=== PATIENT | male | born 1970 | race Caucasian/White ===

== ENCOUNTER 2022-06-12 03:10 | Emergency (ER) | payer OTHER ==
[2022-06-12] MEDS ORDERED: DIAZEPAM 5 MG TABLET ONE ×2 (04:17→06:06)
[2022-06-12] MEDS ORDERED: HYDROCODONE/APAP 5/325 MG TAB ONE (04:17)
[2022-06-12 05:36] LABS: Urine Blood Negative (Negative); Urine Glucose Negative (Negative); Urine Protein Negative (Negative)
[2022-06-12 05:46] LABS: Specific Gravity 1.016 (1.005-1.030); Urine Bilirubin NEGATIVE (Negative); Urine Blood Negative (Negative); Urine Clarity Clear (Clear); Urine Color Colorless (Yellow); Urine Glucose NEGATIVE (Negative); Urine Protein NEGATIVE (Negative); Urine Urobilinogen Normal (Normal)
--- NOTE | 2022-06-12 06:13 | RAD REPORT ---
EXAM DESCRIPTION: RAD - Lumbar Spine 3 Views - 06/12/2022 5:55 am CLINICAL HISTORY: Back pain FINDINGS: No fracture or dislocation is seen. Mild spondylosis involves the lumbar spine
[2022-06-12] MEDS ORDERED: MORPHINE 4 MG/ML SYR ONE (06:52)
[2022-06-12] MEDS ORDERED: KETOROLAC 30 MG/ML INJ ONE ×2 (06:52→08:53)
[2022-06-12] MEDS ORDERED: dexAMETHasone 10 MG/ML VIAL ONE (08:52)
[2022-06-12] MEDS ORDERED: HYDROMORPHONE HCL 1 MG/ML INJ ONE ×2 (08:53→09:55)
[2022-06-12] MEDS ORDERED: NA CHLORIDE 0.9% 1,000 ML ONE (08:53)
--- NOTE | 2022-06-12 09:28 | RAD REPORT ---
EXAM DESCRIPTION: CT - Abdomen Pelvis W Contrast - 06/12/2022 9:16 am CLINICAL HISTORY: Abdominal pain COMPARISON: none. TECHNIQUE: Computed axial tomography of the abdomen pelvis was obtained. 100 cc Isovue-300 was admin istered intravenously. Oral contrast was given All CT scans are performed using dose optimization technique as appropriate and may include automated exposure control or mA/KV adjustment according to patient size. FINDINGS: Fatty liver. Hepatic granuloma. The spleen,, pancreas and adrenals unremarkable. Small right renal cyst. 4 millimeter calculus left kidney. No hydronephrosis. No evidence of diverticulitis. Normal appendix. Wall of the distal esophagus appears thickened. IMPRESSION: Wall of the distal esophagus appears thickened. This may be secondary to incomplete dist ention or pathology such as inflammation. Fatty liver 4 millimeter nonobstructing left renal calculus
--- NOTE | 2022-06-12 09:40 | EDPHYS ---
Physician Documentation [facility] Name: Adi Meredith Age: 51 yrs Sex: Male : 1970 Arrival Date: 06/12/2022 Time: 03:13 Bed 12 Private MD: GANGA Physician Dago Archibald HPI: 06/12 08:38 This 51 yrs old Male presents to ER via Wheelchair with complaints of Back momo Pain, Flank Pain. 08:38 The patient presents with pain that is acute, and decreased range of motion. The momo symptoms are located in the lumbar area, right mid back and right low back. Onset: The symptoms/episode began/occurred 1 day(s) ago. The pain radiates to the lumbar area, right mid back and right low back. Associated signs and symptoms: The patient has no apparent associated signs or symptoms. Modifying factors: The patient symptoms are alleviated by remaining still, rest. Severity of symptoms: At their worst the symptoms were moderate, severe, in the emergency department the symptoms are unchanged. The patient has not experienced similar symptoms in the past. Historical: - Allergies: 03:44 No Known Allergies; as6 - Home Meds: 03:44 Lisinopril Oral [Active]; Metoprolol Tartrate Oral [Active]; amlodipine oral [Active]; as6 - PMHx: 03:44 Hypertensive disorder; as6 - PSHx: 03:44 None; as6 - Immunization history:: Client reports having NOT received the Covid vaccine. - Social history:: Smoking status: Patient/guardian denies using tobacco. - Family history:: not pertinent. ROS: 08:38 Constitutional: Negative for fever, chills, and weight loss, Eyes: Negative for injury, momo pain, redness, and discharge, ENT: Negative for injury, pain, and discharge, Neck: Negative for injury, pain, and swelling, Cardiovascular: Negative for chest pain, palpitations, and edema, Respiratory: Negative for shortness of breath, cough, wheezing, and pleuritic chest pain, Abdomen/GI: Negative for abdominal pain, nausea, vomiting, diarrhea, and constipation, : Negative for injury, bleeding, discharge, and swelling, MS/Extremity: Negative for injury and deformity, Skin: Negative for injury, rash, and discoloration, Neuro: Negative for headache, weakness, numbness, tingling, and seizure, Psych: Negative for depression, anxiety, suicide ideation, homicidal ideation, and hallucinations, Allergy/Immunology: Negative for hives, rash, and allergies, Endocrine: Negative for neck swelling, polydipsia, polyuria, polyphagia, and marked weight changes, Hematologic/Lymphatic: Negative for swollen nodes, abnormal bleeding, and unusual bruising. 08:38 Back: Positive for injury or acute deformity, decreased range of motion, pain at rest, pain with movement, of the lumbar area, right mid back and right low back. Exam: 08:38 Constitutional: This is a well developed, well nourished patient who is awake, alert, momo and in no acute distress. Head/Face: Normocephalic, atraumatic. Eyes: Pupils equal round and reactive to light, extra-ocular motions intact. Lids and lashes normal. Conjunctiva and sclera are non-icteric and not injected. Cornea within normal limits. Periorbital areas with no swelling, redness, or edema. ENT: Nares patent. No nasal discharge, no septal abnormalities noted. Tympanic membranes are normal and external auditory canals are clear. Oropharynx with no redness, swelling, or masses, exudates, or evidence of obstruction, uvula midline. Mucous membranes moist. Neck: Trachea midline, no thyromegaly or masses palpated, and no cervical lymphadenopathy. Supple, full range of motion without nuchal rigidity, or vertebral point tenderness. No Meningismus. Chest/axilla: Normal chest wall appearance and motion. Nontender with no deformity. No lesions are appreciated. Cardiovascular: Regular rate and rhythm with a normal S1 and S2. No gallops, murmurs, or rubs. Normal PMI, no JVD. No pulse deficits. Respiratory: Lungs have equal breath sounds bilaterally, clear to auscultation and percussion. No rales, rhonchi or wheezes noted. No increased work of breathing, no retractions or nasal flaring. Abdomen/GI: Soft, non-tender, with normal bowel sounds. No distension or tympany. No guarding or rebound. No evidence of tenderness throughout. Male : Normal genitalia with no discharge or lesions. Skin: Warm, dry with normal turgor. Normal color with no rashes, no lesions, and no evidence of cellulitis. MS/ Extremity: Pulses equal, no cyanosis. Neurovascular intact. Full, normal range of motion. Neuro: Awake and alert, GCS 15, oriented to person, place, time, and situation. Cranial nerves II-XII grossly intact. Motor strength 5/5 in all extremities. Sensory grossly intact. Cerebellar exam normal. Normal gait. Psych: Awake, alert, with orientation to person, place and time. Behavior, mood, and affect are within normal limits. 08:38 Back: pain, that is moderate, ROM is painful, with all movement, normal spinal alignment noted, CVA tenderness, is absent, vertebral tenderness, is not appreciated, muscle spasm, is appreciated in the lumbar area, right mid back and right low back. Vital Signs: 03:40 BP 173 / 92; Pulse 88; Resp 16 S; Temp 98.3(TE); Pulse Ox 98% on R/A; Weight 136.08 kg as6 (R); Height 5 ft. 10 in. (177.80 cm) (R); Pain 2/10; 05:05 BP 159 / 86; Pulse 85; Resp 18; Pulse Ox 100% ; jj7 06:00 BP 175 / 90; Pulse 87; Resp 21; Pulse Ox 99% ; Pain 9/10; jj7 06:45 BP 183 / 91; Pulse 85; Resp 21; Pulse Ox 98% ; Pain 8/10; jj7 09:49 BP 114 / 85; Pulse 88; Resp 19; Pulse Ox 100% on R/A; Pain 8/10; bm7 03:40 Body Mass Index 43.05 (136.08 kg, 177.80 cm) as6 MDM: 03:51 Patient medically screened. ms3 07:19 Patient medically screened. momo 08:40 Data reviewed: vital signs, nurses notes, lab test result(s), radiologic studies, CT momo scan. Test interpretation: by ED physician or midlevel provider: plain radiologic studies. Counseling: I had a detailed discussion with the patient and/or guardian regarding: the historical points, exam findings, and any diagnostic results supporting the discharge/admit diagnosis, lab results, radiology results, the need for outpatient follow up, for definitive care, a family practitioner, a neurologist. 06/12 03:57 Order name: Urinalysis; Complete Time: 06:16 ms3 06/12 05:36 Order name: Urine Dipstick-Ancillary; Complete Time: 05:49 EDMS 06/12 05:31 Order name: Lumbar Spine (3 Views) XRAY; Complete Time: 06:16 ms3 06/12 08:46 Order name: Abdomen ; Complete Time: 09:33 EDMS Administered Medications: 04:12 Drug: Valium (diazepam) 5 mg Route: PO; as6 04:12 Drug: HYDROcodone-acetaminophen 5 mg-325 mg 1 tabs Route: PO; as6 05:58 Drug: Valium (diazepam) 5 mg Route: PO; jj7 06:52 Drug: morphine 4 mg Route: IVP; Infused Over: 4 mins; Site: right antecubital; jj7 08:55 Follow up: Response: No adverse reaction; No change in condition ss 06:54 Drug: Ketorolac 10 mg Route: IVP; Site: right antecubital; jj7 09:48 Follow up: Response: No adverse reaction bm7 08:45 Drug: NS 0.9% 1000 ml Route: IV; Rate: 1000 ml; Site: right antecubital; ss 08:48 Drug: Ketorolac 15 mg Route: IVP; Site: right antecubital; ss 09:48 Follow up: Response: Pain is decreased bm7 08:50 Drug: Decadron - Dexamethasone 10 mg Route: IVP; Site: right antecubital; ss 09:48 Follow up: Response: No adverse reaction bm7 08:55 Drug: Dilaudid (HYDROmorphone) 1 mg Route: IVP; Site: right antecubital; ss 10:18 Follow up: Response: Pain is unchanged, physician notified bm7 09:48 Drug: Dilaudid (HYDROmorphone) 1 mg Route: IVP; Site: right antecubital; bm7 09:48 Follow up: Response: Pain is unchanged, physician notified bm7 10:03 Drug: [place] (HYDROcodone-acetaminophen) 10 mg-325 mg 1 tabs Route: PO; bm7 10:18 Follow up: Response: No adverse reaction bm7 Disposition Summary: 06/12/22 09:39 Discharge Ordered Location: Home momo Problem: new momo Symptoms: have improved momo Condition: Stable momo Diagnosis - Strain of muscle and tendon of back wall of thorax momo - Low back pain momo - Unspecified symptoms and signs involving the musculoskeletal system momo Followup: momo - With: Private Physician - When: 2 - 3 days - Reason: Recheck today's complaints, Continuance of care, Re-evaluation by your physician Followup: momo - With: - When: 2 - 3 days - Reason: Recheck today's complaints, Continuance of care, Re-evaluation by your physician Discharge Instructions: - Discharge Summary Sheet momo - Acute Back Pain, Adult momo - Musculoskeletal Pain momo - Back Injury Prevention, [id number] momo - Radicular Pain [facility] Forms: - Medication Reconciliation Form momo - Thank You Letter momo - Antibiotic Education momo - Prescription Opioid Use momo - Work release form bd Prescriptions: - dexamethasone 2 mg Oral tablet - take 2 tablet by ORAL route 2 times per day; 12 tablet; Refills: 0, Product [facility] Selection Permitted - Valium 5 mg Oral Tablet - take 1 tablet by ORAL route every 8 hours As needed; 20 tablet; Refills: 0, [facility] Product Selection Permitted - Diclofenac Sodium 75 mg Oral Tablet Sustained Release - take 1 tablet by ORAL route 2 times per day; 30 tablet; Refills: 0, Product [facility] Selection Permitted - Tylenol-Codeine #3 300 mg-30 mg Oral - take 2 tablet by ORAL route every 6 hours; 26 tablet; Refills: 0, Product [facility] Selection Permitted Signatures: Dispatcher [employer] EDMS Dago Archibald MD MD cha Smirch, Shelby RN RN ss Wesley Mae DO DO ms3 Taylor Jimenez RN RN bm7 Sergio Aceves RN RN as6 Oni Jin RN RN jj7 Corrections: (The following items were deleted from the chart) 08:46 06:28 Abdomen Pelvis Wo Con+CT.RAD.BRZ ordered. EDMS EDMS 08:47 08:38 Spine Lumbar Wo Con+CT.RAD.BRZ ordered. EDMS EDMS
--- NOTE | 2022-06-12 09:40 | ER ---
Nurse's Notes [facility] Name: Adi Meredith Age: 51 yrs Sex: Male : 1970 Arrival Date: 06/12/2022 Time: 03:13 Bed 12 Private MD: Diagnosis: Strain of muscle and tendon of back wall of thorax;Low back pain;Unspecified symptoms and signs involving the musculoskeletal system Presentation: 06/12 03:40 Chief complaint: Patient states: "I bent down and when I stood up I got a sharp pain in as6 my back" pt c/o right sided flank pain radiating to RLQ. Coronavirus screen: At this time, the client does not indicate any symptoms associated with coronavirus-19. Ebola Screen: No symptoms or risks identified at this time. Initial Sepsis Screen: Does the patient meet any 2 criteria? No. Patient's initial sepsis screen is negative. Does the patient have a suspected source of infection? No. Patient's initial sepsis screen is negative. Risk Assessment: Do you want to hurt yourself or someone else? Patient reports no desire to harm self or others. Onset of symptoms was June 12, 2022. 03:40 Method Of Arrival: Wheelchair as6 03:40 Acuity: NIMO 4 as6 Triage Assessment: 03:55 General: Appears distressed, uncomfortable, Behavior is cooperative. Musculoskeletal: jj7 Reports pain in right low back. Historical: - Allergies: 03:44 No Known Allergies; as6 - Home Meds: 03:44 Lisinopril Oral [Active]; Metoprolol Tartrate Oral [Active]; amlodipine oral [Active]; as6 - PMHx: 03:44 Hypertensive disorder; as6 - PSHx: 03:44 None; as6 - Immunization history:: Client reports having NOT received the Covid vaccine. - Social history:: Smoking status: Patient/guardian denies using tobacco. - Family history:: not pertinent. Screenin:55 Abuse screen: Denies threats or abuse. Nutritional screening: No deficits noted. jj7 Tuberculosis screening: No symptoms or risk factors identified. Fall Risk None identified. Assessment: 03:55 Pain: Complains of pain in right low back. Neuro: No deficits noted. Level of jj7 Consciousness is awake, alert, obeys commands. 05:06 Reassessment: pt states pain is getting better but he is not able to give a urine jj7 sample now because he just used restroom police captain. 07:06 Reassessment: report given to janet jeffries nurse. jj7 07:33 Reassessment: Pt back from CT. Awaiting results. ss 08:56 Reassessment: RASS score + 1 prior to medication administration. Pt medicated as ss ordered. To CT now VIA stretcher. 09:49 Reassessment: Patient and/or family updated on plan of care and expected duration. Pain bm7 level reassessed. Patient is alert, oriented x 3, equal unlabored respirations, skin warm/dry/pink. Vital Signs: 03:40 BP 173 / 92; Pulse 88; Resp 16 S; Temp 98.3(TE); Pulse Ox 98% on R/A; Weight 136.08 kg as6 (R); Height 5 ft. 10 in. (177.80 cm) (R); Pain 2/10; 05:05 BP 159 / 86; Pulse 85; Resp 18; Pulse Ox 100% ; jj7 06:00 BP 175 / 90; Pulse 87; Resp 21; Pulse Ox 99% ; Pain 9/10; jj7 06:45 BP 183 / 91; Pulse 85; Resp 21; Pulse Ox 98% ; Pain 8/10; jj7 09:49 BP 114 / 85; Pulse 88; Resp 19; Pulse Ox 100% on R/A; Pain 8/10; bm7 03:40 Body Mass Index 43.05 (136.08 kg, 177.80 cm) as6 ED Course: 03:13 Patient arrived in ED. bp1 03:22 Wesley Mae DO is Attending Physician. ms3 03:44 Triage completed. as6 03:45 Arm band placed on. as6 03:55 Patient has correct armband on for positive identification. Bed in low position. Call jj7 light in reach. Adult w/ patient. 03:55 No provider procedures requiring assistance completed. jj7 05:57 Lumbar Spine (3 Views) XRAY In Process Unspecified. EDMS 05:58 Urinalysis Sent. jj7 06:50 Inserted saline lock: 20 gauge in right antecubital area, using aseptic technique. jj7 07:19 Attending Physician role handed off by Wesley Mae DO momo 07:19 Dago Archibald MD is Attending Physician. momo 07:33 Jaent Cain, AVA is Primary Nurse. ss 09:39 Flako Stafford MD is Referral Physician. momo 10:16 Client placed on continuous cardiac and pulse oximetry monitoring. NIBP monitoring bm7 applied. Warm blanket given. 10:16 intact, bleeding controlled, No redness/swelling at site. Pressure dressing applied. bm7 Administered Medications: 04:12 Drug: Valium (diazepam) 5 mg Route: PO; as6 04:12 Drug: HYDROcodone-acetaminophen 5 mg-325 mg 1 tabs Route: PO; as6 05:58 Drug: Valium (diazepam) 5 mg Route: PO; jj7 06:52 Drug: morphine 4 mg Route: IVP; Infused Over: 4 mins; Site: right antecubital; jj7 08:55 Follow up: Response: No adverse reaction; No change in condition ss 06:54 Drug: Ketorolac 10 mg Route: IVP; Site: right antecubital; jj7 09:48 Follow up: Response: No adverse reaction bm7 08:45 Drug: NS 0.9% 1000 ml Route: IV; Rate: 1000 ml; Site: right antecubital; ss 08:48 Drug: Ketorolac 15 mg Route: IVP; Site: right antecubital; ss 09:48 Follow up: Response: Pain is decreased bm7 08:50 Drug: Decadron - Dexamethasone 10 mg Route: IVP; Site: right antecubital; ss 09:48 Follow up: Response: No adverse reaction bm7 08:55 Drug: Dilaudid (HYDROmorphone) 1 mg Route: IVP; Site: right antecubital; ss 10:18 Follow up: Response: Pain is unchanged, physician notified bm7 09:48 Drug: Dilaudid (HYDROmorphone) 1 mg Route: IVP; Site: right antecubital; bm7 09:48 Follow up: Response: Pain is unchanged, physician notified bm7 10:03 Drug: [place] (HYDROcodone-acetaminophen) 10 mg-325 mg 1 tabs Route: PO; bm7 10:18 Follow up: Response: No adverse reaction bm7 Medication: 03:55 VIS not applicable for this client. jj7 Outcome: 09:39 Discharge ordered by . momo 10:16 Discharged to home via wheelchair, with family. bm7 10:16 Condition: improved 10:16 Discharge instructions given to patient, family, Instructed on discharge instructions, follow up and referral plans. medication usage, Demonstrated understanding of instructions, follow-up care, medications, Prescriptions given X 4. 10:18 Patient left the ED. bm7 Signatures: Dispatcher [employer] EDMS Dago Archibald MD MD cha Smirch, Shelby, RN RN ss Wesley Mae DO DO ms3 Taylor Fry Brittany, RN RN bm7 Sergio Aceves RN RN as6 Oni Jin RN RN jj7 Corrections: (The following items were deleted from the chart) 06:58 06:45 BP 183 / 91; Pulse 85bpm; Resp 21bpm; Pulse Ox 98%; Pain 9/10; jj7 jj7 07:01 03:55 Pain: Complains of pain in left low back j7 jj7 07:01 03:55 Neuro: No deficits noted. Level of Consciousness is awake, alert, obeys commands, jj7 jj7
[2022-06-12] MEDS ORDERED: HYDROCODONE/APAP 10/325 TAB ONE (10:12)
[2022-06-13 16:50] VITALS: BP 173/92; TEMP 98.3; O2SAT 98
== END 2022-06-12 10:18 | disposition home or self-care (01) ==
LOC: ER 03:10
DX: S29.012A Strain of muscle and tendon of back wall of thorax, initial encounter (principal); R29.91 Unspecified symptoms and signs involving the musculoskeletal system; M54.50 Low back pain, unspecified; I10 Essential (primary) hypertension
CPT/HCPCS: 81003 ×2; 74177; 72100; 96375; 96374; 99284; Q9967; J1100; J1170 ×2; J7030

== ENCOUNTER 2023-12-20 23:56 | Emergency (ER) | payer OTHER ==
[2023-12-21] MEDS ORDERED: LIDOCAINE 1% MPF 5 ML VIAL ONE (00:23)
[2023-12-21] MEDS ORDERED: TDAP (DIPHTH,PERTUSS(ACELL),TET VAC) 0.5 ML VIAL IMVAC ONE (00:53)
[2023-12-21] MEDS ORDERED: CEPHALEXIN 250 MG CAP ONE (00:53)
--- NOTE | 2023-12-21 00:59 | ER ---
Nurse's Notes [facility] Name: Adi Meredith Age: 53 yrs Sex: Male : 1970 Arrival Date: 12/20/2023 Time: 23:56 Bed 2 Private MD: Diagnosis: Laceration without foreign body of other part of head-upper lip Presentation: 12/20 00:26 Chief complaint: Patient states: I was rough housing with my dog and laid on his paw by jb4 accident. when I did he jump and tried to pull back but his tooth caught me and cut my lip. He did not bite or try to bite me, he just jumped and caught me by accident. Coronavirus screen: At this time, the client does not indicate any symptoms associated with coronavirus-19. Ebola Screen: No symptoms or risks identified at this time. Complicating Factors: There are no complicating factors for this patient. Initial Sepsis Screen: Does the patient meet any 2 criteria? No. Patient's initial sepsis screen is negative. Does the patient have a suspected source of infection? No. Patient's initial sepsis screen is negative. Risk Assessment: Do you want to hurt yourself or someone else? Patient reports no desire to harm self or others. Onset of symptoms was December 21, 2023. Transition of care: patient was not received from another setting of care. 00:26 Method Of Arrival: Ambulatory jb4 00:26 Acuity: NIMO 4 jb4 Triage Assessment: 00:30 General: Appears in no apparent distress. comfortable, Behavior is calm, cooperative, jb4 appropriate for age. Pain: Complains of pain in upper lip Pain does not radiate. Pain currently is 6 out of 10 on a pain scale. Injury Description: Laceration sustained to upper lip is 0.5 to 2.5 cm long, not bleeding. Historical: - Allergies: 00:30 No Known Allergies; jb4 - PMHx: 00:30 Hypertensive disorder; jb4 - PSHx: 00:30 None; jb4 - Immunization history:: Adult Immunizations unknown, Last tetanus immunization: unknown. - Social history:: Smoking status: Patient denies any tobacco usage or history of. Patient uses alcohol, occasionally. Screenin:35 [facility] ED Fall Risk Assessment (Adult) History of falling in the last 3 months, tm6 including since admission No falls in past 3 months (0 pts) Confusion or Disorientation No (0 pts) Intoxicated or Sedated No (0 pts) Impaired Gait No (0 pts) Mobility Assist Device Used No (0 pt) Altered Elimination No (0 pt) Score/Fall Risk Level 0 - 2 = Low Risk Oriented to surroundings, Maintained a safe environment. Abuse screen: Denies threats or abuse. Denies injuries from another. Nutritional screening: No deficits noted. Tuberculosis screening: No symptoms or risk factors identified. Assessment: 00:44 General: Appears in no apparent distress. uncomfortable, Behavior is calm, cooperative. tm6 Pain: Complains of pain in upper lip Pain currently is 2 out of 10 on a pain scale. Neuro: Level of Consciousness is awake, alert, obeys commands, Oriented to person, place, time, situation. Cardiovascular: Patient's skin is warm and dry. Respiratory: Airway is patent Respiratory effort is even, unlabored, Respiratory pattern is regular, symmetrical. GI: Abdomen is round non-distended. : No signs and/or symptoms were reported regarding the genitourinary system. EENT: No signs and/or symptoms were reported regarding the EENT system. Derm: Wound noted upper lip Wound is laceration less than 1cm in length across upper lip. Musculoskeletal: No signs and/or symptoms reported regarding the musculoskeletal system. Injury Description: Laceration sustained to upper lip is 0.5 to 2.5 cm long, is bleeding a small amount. 01:18 Reassessment: Patient and/or family updated on plan of care and expected duration. Pain tm6 level reassessed. Patient is alert, oriented x 3, equal unlabored respirations, skin warm/dry/pink. Vital Signs: 00:26 BP 131 / 85; Pulse 85; Resp 16; Pulse Ox 95% on R/A; Height 5 ft. 10 in. ; Pain 6/10; jb4 00:47 BP 127 / 79; Pulse 85; Pulse Ox 97% on R/A; Pain 2/10; tm6 01:18 BP 123 / 73; Pulse 86; Resp 17; Temp 98.2(TE); Pulse Ox 97% on R/A; Pain 2/10; tm6 00:26 Pain Scale: Adult jb4 00:47 Pain Scale: Adult tm6 01:18 Pain Scale: Adult tm6 ED Course: 00:01 Patient arrived in ED. gm2 00:24 Dago Rhodes PA is PHCP. cp 00:24 Dago Archibald MD is Attending Physician. cp 00:30 Triage completed. jb4 00:30 Arm band placed on right wrist. jb4 00:32 Paige Brasher, AVA is Primary Nurse. tm6 00:35 Patient has correct armband on for positive identification. Placed in gown. Bed in low tm6 position. Call light in reach. Side rails up X2. Provided Education on: plan of care. Client placed on continuous cardiac and pulse oximetry monitoring. NIBP monitoring applied. Pulse ox on. NIBP on. Door closed. Noise minimized. 00:57 Kimi Coleman MD is Referral Physician. [facility] 01:18 No provider procedures requiring assistance completed. Patient did not have IV access tm6 during this emergency room visit. Administered Medications: 00:45 Drug: Lidocaine Infiltration (1 %) 5 mg Infiltration once {Note: administered by ER jb4 provider.} Route: Infiltration; 00:51 Not Given (Duplicate Order): [id number] mg PO once [facility] 00:58 Not Given (Physician Discretion): amoxicillin-[id number] mg PO once tm6 00:59 Not Given (Product Out of Stock): tetanus toxoid,adsorbed0.5 ml IM once; Provide tm6 Vaccine Information Statement (VIS). 00:59 Drug: Cephalexin PO 500 mg PO once Route: PO; tm6 00:59 Drug: Boostrix Tdap IM 0.5 ml IM once; as a single dose Route: IM; Site: right deltoid; tm6 01:18 Drug: Dkdmfwww-Omqgxhtrxo-Xmzrmonth Topical Ointment 1 application Topical once Route: tm6 Topical; Site: affected area; Medication: 00:35 VIS not applicable for this client. tm6 Outcome: 00:58 Discharge ordered by . momo 01:18 Discharged to home ambulatory, with family, tm6 01:18 Condition: stable 01:18 Discharge instructions given to patient, family, Instructed on discharge instructions, follow up and referral plans. medication usage, Demonstrated understanding of instructions, follow-up care, medications, Prescriptions given X 2, 01:19 Patient left the ED. tm6 Signatures: Dago Archibald MD MD cha Page, Corey, PA PA cp Bryson, James, RN RN jb4 Genoveva Santos gm2 Paige Brasher, RN RN tm6
--- NOTE | 2023-12-21 00:59 | EDPHYS ---
Physician Documentation [facility] Name: Adi Meredith Age: 53 yrs Sex: Male : 1970 Arrival Date: 12/20/2023 Time: 23:56 Bed 2 Private MD: ED Physician Dago Archibald HPI: 12/20 00:50 This 53 yrs old Male presents to ER via Ambulatory with complaints of momo Laceration To Lip. 00:50 The patient presents with pain. The problem is located in the face, upper vermilion momo border and upper lip. Onset: The symptoms/episode began/occurred just prior to arrival. Historical: - Allergies: 00:30 No Known Allergies; jb4 - PMHx: 00:30 Hypertensive disorder; jb4 - PSHx: 00:30 None; jb4 - Immunization history:: Adult Immunizations unknown, Last tetanus immunization: unknown. - Social history:: Smoking status: Patient denies any tobacco usage or history of. Patient uses alcohol, occasionally. ROS: 00:51 Constitutional: Negative for fever, chills, and weight loss, Eyes: Negative for injury, momo pain, redness, and discharge, Neck: Negative for injury, pain, and swelling, Cardiovascular: Negative for chest pain, palpitations, and edema, Respiratory: Negative for shortness of breath, cough, wheezing, and pleuritic chest pain, Abdomen/GI: Negative for abdominal pain, nausea, vomiting, diarrhea, and constipation, Back: Negative for injury and pain, : Negative for injury, bleeding, discharge, and swelling, MS/Extremity: Negative for injury and deformity, Skin: Negative for injury, rash, and discoloration, Neuro: Negative for headache, weakness, numbness, tingling, and seizure, Psych: Negative for depression, anxiety, suicide ideation, homicidal ideation, and hallucinations, Allergy/Immunology: Negative for hives, rash, and allergies, Endocrine: Negative for neck swelling, polydipsia, polyuria, polyphagia, and marked weight changes, Hematologic/Lymphatic: Negative for swollen nodes, abnormal bleeding, and unusual bruising, 00:51 ENT: Positive for upper lip laceration, Exam: 00:51 Constitutional: This is a well developed, well nourished patient who is awake, alert, momo and in no acute distress. Head/Face: Normocephalic, atraumatic. Eyes: Pupils equal round and reactive to light, extra-ocular motions intact. Lids and lashes normal. Conjunctiva and sclera are non-icteric and not injected. Cornea within normal limits. Periorbital areas with no swelling, redness, or edema. Neck: Trachea midline, no thyromegaly or masses palpated, and no cervical lymphadenopathy. Supple, full range of motion without nuchal rigidity, or vertebral point tenderness. No Meningismus. Chest/axilla: Normal chest wall appearance and motion. Nontender with no deformity. No lesions are appreciated. Cardiovascular: Regular rate and rhythm with a normal S1 and S2. No gallops, murmurs, or rubs. Normal PMI, no JVD. No pulse deficits. Respiratory: Lungs have equal breath sounds bilaterally, clear to auscultation and percussion. No rales, rhonchi or wheezes noted. No increased work of breathing, no retractions or nasal flaring. Abdomen/GI: Soft, non-tender, with normal bowel sounds. No distension or tympany. No guarding or rebound. No evidence of tenderness throughout. Back: No spinal tenderness. No costovertebral tenderness. Full range of motion. Male : Normal genitalia with no discharge or lesions. Skin: Warm, dry with normal turgor. Normal color with no rashes, no lesions, and no evidence of cellulitis. MS/ Extremity: Pulses equal, no cyanosis. Neurovascular intact. Full, normal range of motion. Neuro: Awake and alert, GCS 15, oriented to person, place, time, and situation. Cranial nerves II-XII grossly intact. Motor strength 5/5 in all extremities. Sensory grossly intact. Cerebellar exam normal. Normal gait. Psych: Awake, alert, with orientation to person, place and time. Behavior, mood, and affect are within normal limits. 00:51 ENT: Mouth: Lips: lacerated, approximately 2.0 cm(s), Oral mucosa: normal, pink and intact, Gums: normal with healthy appearance, Tongue: is normal, abscess, is not appreciated, Posterior pharynx: is normal, no acute changes, Airway: normal, no evidence of obstruction, Vital Signs: 00:26 BP 131 / 85; Pulse 85; Resp 16; Pulse Ox 95% on R/A; Height 5 ft. 10 in. ; Pain 6/10; jb4 00:47 BP 127 / 79; Pulse 85; Pulse Ox 97% on R/A; Pain 2/10; tm6 01:18 BP 123 / 73; Pulse 86; Resp 17; Temp 98.2(TE); Pulse Ox 97% on R/A; Pain 2/10; tm6 00:26 Pain Scale: Adult jb4 00:47 Pain Scale: Adult tm6 01:18 Pain Scale: Adult tm6 Laceration: 00:55 Wound Repair of 2cm ( 0.8in ) subcutaneous laceration to upper vermilion border and momo upper lip. Irregularly shaped.. Distal neuro/vascular/tendon intact. Anesthesia: Local anesthetic administered with 5 mls of 1% lidocaine. Wound prep: Moderate cleansing by me. Skin closed with 2 5-0 Vicryl using interrupted sutures and sterile technique. Dressed with Neosporin. Patient tolerated well. MDM: 00:24 Patient medically screened. cp 00:54 Differential diagnosis: gingivostomatitis. Data reviewed: vital signs, nurses notes, [facility] lab test result(s). Consideration of Admission/Observation Escalation of care including admission/observation considered. I considered the following discharge prescriptions or medication management in the emergency department Medications were administered in the Emergency Department. See MAR. Test considered but Not performed: Labs: no labs. Historians other than the Patient: Spouse/Significant Other: well informed. Care significantly affected by the following chronic conditions: Hypertension, Obesity. 12/20 00:45 Order name: Dressing - Wound; Complete Time: 00:46 [facility] 12/20 00:45 Order name: Gloves, Sterile; Complete Time: 00:46 [facility] 12/20 00:45 Order name: Setup Suture Tray; Complete Time: 00:46 [facility] 12/20 00:48 Order name: Ice pack; Complete Time: 00:58 [facility] Administered Medications: 00:45 Drug: Lidocaine Infiltration (1 %) 5 mg Infiltration once {Note: administered by ER [facility] provider.} Route: Infiltration; 00:51 Not Given (Duplicate Order): [id number] mg PO once momo 00:58 Not Given (Physician Discretion): amoxicillin-[id number] mg PO once tm6 00:59 Not Given (Product Out of Stock): tetanus toxoid,adsorbed0.5 ml IM once; Provide tm6 Vaccine Information Statement (VIS). 00:59 Drug: Cephalexin PO 500 mg PO once Route: PO; tm6 00:59 Drug: Boostrix Tdap IM 0.5 ml IM once; as a single dose Route: IM; Site: right deltoid; tm6 01:18 Drug: Zrxfiwpl-Aukofbdzbd-Qammrzbqo Topical Ointment 1 application Topical once Route: tm6 Topical; Site: affected area; Disposition Summary: 12/21/23 00:58 Discharge Ordered Notes: Location: Home momo Problem: new momo Symptoms: have improved momo Condition: Stable momo Diagnosis - Laceration without foreign body of other part of head - upper lip momo Followup: momo - With: Private Physician - When: 5 - 6 days - Reason: Recheck today's complaints, Continuance of care, Re-evaluation by your physician Followup: momo - With: Kimi Coleman MD - When: 2 - 3 days - Reason: Recheck today's complaints, Re-evaluation by your physician Discharge Instructions: - Discharge Summary Sheet momo - Mouth Laceration momo - Facial Laceration momo - Mouth Laceration, [id number] momo - Facial Laceration, [id number] [facility] Forms: - Medication Reconciliation Form [facility] - Thank You Letter [facility] - Antibiotic Education [facility] - Prescription Opioid Use [facility] - Patient Portal Instructions [facility] - Leadership Thank You Letter [facility] Prescriptions: - Augmentin 875-125 mg Oral tablet - take 1 tablet ORAL route every 12 hours for 7 days; 14 tablet; Refills: 0, [facility] Product Selection Permitted - Ibuprofen 600 mg Oral tablet - take 1 tablet ORAL route every 6 hours As needed take with food; 20 tablet; [facility] Refills: 0, Product Selection Permitted Signatures: Dago Archibald MD MD cha Page, Corey, PA PA cp Bryson, James, RN RN jb4 Paige Brasher RN RN tm6
[2023-12-21] MEDS ORDERED: BACI/NEOMYCIN/POLY OINT 15GM TOP ONE (01:12)
[2023-12-21 05:50] VITALS: BP 123/73; O2SAT 97
[2023-12-21 05:51] VITALS: TEMP 98.2
== END 2023-12-21 01:19 | disposition home or self-care (01) ==
LOC: ER 23:56
PROC: 0HQ1XZZ Repair Face Skin, External Approach (ICD-10-PCS; principal; 2023-12-21)
DX: S01.511A Laceration without foreign body of lip, initial encounter (principal)
CPT/HCPCS: 96372; 99284; 12011; J2001

== ENCOUNTER 2024-09-12 11:23 | Emergency (ER) | payer OTHER ==
[2024-09-12] MEDS ORDERED: METHYLPREDNISOLONE 125 MG INJ ONE (11:48)
[2024-09-12] MEDS ORDERED: IPRATROPIUM BROM 0.5MG/2.5ML ONE (11:48)
[2024-09-12] MEDS ORDERED: ALBUTEROL 2.5 MG/3 ML NEB SOL ONE (11:48)
[2024-09-12 12:01] LABS: Absolute Lymphocytes (CBC) 0.9 K/uL (0.7-4.9); Absolute Monocytes 0.5 K/uL (0.1-1.3); Absolute Neutrophil 11.3 K/uL (1.8-8.0); Basophils % 0.1 % (0-1.3); Hematocrit 34.9 % (39.6-49.0); Hemoglobin 11.4 g/dL (13.6-17.9); Lymphocytes % 6.8 % (15.3-44.8); MCH 28.1 pg (27.0-35.0); MCHC 32.8 g/dL (32.0-36.0); MCV 85.8 fL (80-100); Monocytes % 4.2 % (3.3-12.3); Neutrophils % 88.9 % (41.7-73.7); Platelets 227 thou/uL (152-406); RBC Red Blood Cell Count 4.07 M/uL (4.33-5.43); Red Cell Distribution Width 14.7 % (12.1-15.2)
[2024-09-12 12:08] LABS: PT Prothrombin Time 18.3 SECONDS (9.4-12.5); Protime INR 1.66
[2024-09-12 12:23] LABS: Albumin 2.6 g/dL (3.4-5.0); Albumin/Globulin Ratio 0.6 (1.1-1.8); Anion Gap 13.8 mEq/L (5.0-15.0); Bilirubin Total 0.9 mg/dL (0.2-1.0); Globulin 4.5 g/dL (2.3-3.5); Potassium 2.8 mEq/L (3.5-5.1); Protein, Total 7.1 g/dL (6.4-8.2)
--- NOTE | 2024-09-12 12:23 | RAD REPORT ---
EXAMINATION: ONE VIEW CHEST XR CLINICAL INDICATION: DYSPNEA TECHNIQUE: Frontal chest projection is submitted. Examination is limited by patient positioning and t echnique. COMPARISON: 2014 prior chest radiograph FINDINGS: Patchy airspace opacity is present in both lung bases, greater on the left, likely representing infil trate/pneumonia. The heart is mildly prominent in size. No fracture seen.
[2024-09-12 12:25] LABS: Band Neutrophils 10 % (0-1); Blood Morphology Comment NOT SEEN (NOT SEEN); Differential Total Cells Count 100; Dohle Bodies PRESENT; Lymphocytes 10 % (15-42); Monocytes 9 % (0-10); Platelet Estimate ADEQ; Segmented Neutrophils 71 % (40-80); Toxic Granulation 1+; Troponin High Sensitivity 63.8 pg/mL (<58.9)
[2024-09-12] MEDS ORDERED: NA CHLORIDE 0.9% 2,000 ML ONE (12:45)
[2024-09-12 12:54] LABS: SARS-CoV-2 Antigen CONTROL BLUE LINE VIS/BG OK; SARS-CoV-2 Antigen Rapid Res Negative (Negative)
[2024-09-12] MEDS ORDERED: CEFTRIAXONE 1000 MG/VIAL ONE (12:58)
[2024-09-12] MEDS ORDERED: AZITHROMYCIN 500 MG INJ IVPB ONE (12:59)
[2024-09-12] MEDS ORDERED: ASPIRIN 81 MG CHEWABLE TABLET ONE (12:59)
[2024-09-12] MEDS ORDERED: POTASSIUM 25 MEQ EFFERV TAB ONE (13:36)
--- NOTE | 2024-09-12 13:36 | RAD REPORT ---
EXAMINATION: CT CHEST WITHOUT CONTRAST CLINICAL INDICATION: DYSPNEA TECHNIQUE: Routine CT scan of the chest without intravenous contrast. One or more of the following do se reduction techniques were used: Automated exposure control, adjustment of the mA and/or kV according to patient size, and/or iterative reconstruction. Unless otherwise specified, incidental fi ndings do not require dedicated imaging follow-up. COMPARISON: Same day chest radiograph. FINDINGS: LOWER NECK: Visualized thyroid gland and soft tissues are normal. LUNGS: Large areas of lung consolidation are seen in both lower lobes. Mild patchy lung opacities are present in the posterior left upper lobe as well. PLEURA: No pleural effusion. No pneumothorax. . MEDIASTINUM AND LYMPH NODES: No mediastinal mass or fluid collection. Normal size mediastinal, hilar, and axillary lymph nodes. OSSEOUS STRUCTURES AND CHEST WALL: Intact. UPPER ABDOMEN: No significant abnormalities. IMPRESSION: Large area of lung consolidation in the lower lobes posteriorly and bilaterally likely representing p neumonia. Mild patchy opacity in the posterior left upper lobe likely additional area of infiltrate/pneumonia. Examination limited by lack of IV contrast.
[2024-09-12] MEDS ORDERED: ALBUMIN HUMAN 25% 100 ML IV ONE (13:59)
--- NOTE | 2024-09-12 14:16 | ER ---
Nurse's Notes [facility] Name: Adi Meredith Age: 54 yrs Sex: Male : 1970 Arrival Date: 09/12/2024 Time: 11:23 Bed 18 Private MD: Diagnosis: Multifocal pneumonia;Severe sepsis with septic shock;Hypoxemia Presentation: 09/12 12:17 Chief complaint: Patient states: SENT FROM WORK FOR SOB. Coronavirus screen: At this bp time, the client does not indicate any symptoms associated with coronavirus-19. Ebola Screen: No symptoms or risks identified at this time. Initial Sepsis Screen: Does the patient meet any 2 criteria? No. Patient's initial sepsis screen is negative. Does the patient have a suspected source of infection? No. Patient's initial sepsis screen is negative. Risk Assessment: Do you want to hurt yourself or someone else? Patient reports no desire to harm self or others. Onset of symptoms is unknown. 12:17 Method Of Arrival: Wheelchair bp 12:17 Acuity: NIMO 3 bp Triage Assessment: 12:00 General: Appears distressed, ill, Behavior is calm, cooperative, appropriate for age. bp Pain: Complains of pain in chest. EENT: No deficits noted. Neuro: No deficits noted. Cardiovascular: No deficits noted. Respiratory: Reports shortness of breath cough that is Onset: The symptoms/episode began/occurred at an unknown time. the patient has moderate shortness of breath. GI: No signs and/or symptoms were reported involving the gastrointestinal system. : No signs and/or symptoms were reported regarding the genitourinary system. Derm: No deficits noted. Musculoskeletal: No deficits noted. Historical: - Allergies: 12:19 No Known Allergies; bp - Home Meds: 12:19 amlodipine oral [Active]; Metoprolol Tartrate Oral [Active]; lisinopril Oral [Active]; bp - PMHx: 12:19 Hypertensive disorder; bp - Immunization history:: Adult Immunizations up to date. - Infectious Disease History:: Denies. - Social history:: Smoking status: Patient denies any tobacco usage or history of. Screenin:38 [facility] ED Fall Risk Assessment (Adult) History of falling in the last 3 months, bp including since admission No falls in past 3 months (0 pts) Confusion or Disorientation No (0 pts) Intoxicated or Sedated No (0 pts) Impaired Gait No (0 pts) Mobility Assist Device Used No (0 pt) Altered Elimination No (0 pt) Score/Fall Risk Level 0 - 2 = Low Risk Oriented to surroundings. Abuse screen: Denies threats or abuse. Denies injuries from another. Nutritional screening: No deficits noted. Tuberculosis screening: No symptoms or risk factors identified. Assessment: 12:00 General: Appears distressed, ill, Behavior is calm, cooperative, appropriate for age. bp Cardiovascular: Rhythm is sinus rhythm. Respiratory: Airway is patent Respiratory effort is labored, Breath sounds with wheezes bilaterally. 14:00 Reassessment: No changes from previously documented assessment. Patient is alert, bp oriented x 3, equal unlabored respirations, skin warm/dry/pink. 16:00 Reassessment: Patient is alert, oriented x 3, equal unlabored respirations, skin bp warm/dry/pink. Patient states symptoms have improved. 16:43 Reassessment: REPORT TO [facility] AT [facility], TRANSPORT PENDING. bp Vital Signs: 12:17 Pulse 81; Resp 24; Temp 97.9; Pulse Ox 90% on 2 lpm NC; bp 12:19 BP 83 / 53; Pulse 78; Resp 20; Pulse Ox 94% on 12 lpm Nebulizer Mask; Weight 130.18 kg; bp 13:06 BP 79 / 46; Pulse 78; Resp 20; Pulse Ox 91% on 4 lpm NC; bp 13:55 BP 89 / 52; Pulse 85; Pulse Ox 93% on 4 lpm NC; sb4 14:13 BP 99 / 56; sb4 14:24 BP 96 / 61; sb4 14:37 BP 96 / 61; Pulse 85; Resp 20; Pulse Ox 90% on 4 lpm NC; bp 16:00 BP 96 / 53; Pulse 84; Resp 21; Pulse Ox 92% on 4 lpm NC; bp ED Course: 11:25 Patient arrived in ED. ra3 11:35 Ángel Lora, RN is Primary Nurse. bp 11:35 Denae Hahn PA-C is PHCP. sb4 11:35 Dago Archibald MD is Attending Physician. sb4 11:40 Initial lab(s) drawn, by ri, sent to lab. First set of blood cultures drawn by me, EKG bc6 done, by ED staff, reviewed by Denae Hahn PA-C COVID swab sent to lab. Flu and/or RSV swab sent to lab. 11:56 RSV Sent. bc6 11:56 Flu Sent. bc6 11:56 SARS RAPID Sent. bc6 11:56 BNP Sent. bc6 11:56 Troponin High Sensitivity Sent. bc6 11:56 Blood Culture Adult (2) Sent. bc6 11:56 CBC with Diff Sent. bc6 11:57 CMP Sent. bc6 11:57 Lactate w/ 2H reflex if indic. Sent. bc6 11:57 Protime (+inr) Sent. bc6 11:57 Ptt, Activated Sent. bc6 11:57 Inserted saline lock: 20 gauge in right antecubital area, using aseptic technique. bc6 Blood collected. Flushed with 10 mL NS. 12:12 Chest Single View XRAY In Process Unspecified. EDMS 12:19 Triage completed. bp 12:21 Arm band placed on. bp 13:[address] In Process Unspecified. EDMS 14:15 Darius Greene is Hospitalizing Provider. sb4 14:38 Patient has correct armband on for positive identification. bp Administered Medications: 12:00 Drug: MethylPrednisoLONE IVP 125 mg IVP once Route: IVP; Site: right antecubital; bp 16:13 Follow up: Response: No adverse reaction bp 12:00 Drug: DuoNeb Nebulize (3:1) (2.5 mg - 0.5 mg) 3 ml Nebulizer once Route: Nebulizer; bp 16:14 Follow up: Response: No adverse reaction bp 12:30 Drug: NS 0.9% IV (30 ml/kg) 30 ml/kg IV at bolus once; Sepsis Protocol; to be given as bp a bolus over 90 minutes Route: IV; Rate: bolus; Site: right antecubital; 16:13 Follow up: IV Status: Completed infusion bp 12:45 Drug: Aspirin PO Chewable Tablet 324 mg PO once; 81 mg tablets x 4 Route: PO; bp 16:13 Follow up: Response: No adverse reaction bp 12:55 Drug: AZITHromycin IVPB 500 mg IVPB once over 1 hrs; (mix in 250 mL NS) Route: IVPB; bp Infused Over: 1 hrs; Site: right antecubital; 16:13 Follow up: IV Status: Completed infusion bp 12:55 Drug: Rocephin IV 1 grams IV at calculated rate once; Given slow IV push per pharmacy bp instructions Route: IV; Rate: calculated rate; Site: right antecubital; 16:13 Follow up: IV Status: Completed infusion bp 13:15 Drug: Potassium PO Effervescent Tablet 50 mEq PO once; dissolve in 4 ounces of water or bp juice Route: PO; 16:12 Follow up: Response: No adverse reaction bp 14:00 Drug: Albumin IVPB 25 grams 100 ml IVPB once; (Note: Albumin 25% concentration) Volume: bp 100 ml; Route: IVPB; Site: right antecubital; 16:12 Follow up: IV Status: Completed infusion bp 15:00 Drug: levofloxacin IVPB 750 mg 150 ml IVPB once over 90 mins Volume: 150 ml; Route: bp IVPB; Infused Over: 90 mins; Site: right antecubital; 16:12 Follow up: IV Status: Completed infusion bp 15:45 Drug: HYDROcodone-acetaminophen PO 5 mg-325 mg 1 tabs PO once Route: PO; bp 16:15 Drug: vancoMYCIN IVPB 1.5 grams IVPB at calculated rate once Route: IVPB; Rate: bp calculated rate; Site: right antecubital; 17:02 Drug: NS 0.9% IV 1000 ml IV at 100 ml once Route: IV; Rate: 100 ml; Site: right bp antecubital; Outcome: 14:16 Decision to Hospitalize by Provider. sb4 14:38 ER care complete, transfer ordered by MD. sb4 17:24 Patient left the ED. iw Addendum: 09/15/2024 12:00 Addendum: Culture Results: Positive blood culture. Phone call Attempt #1 faxed blood i w culture report to [phone]. Signatures: Dispatcher [employer] Nancy Godinez RN RN iw Peltier, Brian, RN RN bp Brown, Sophia, PA-C PANora sb4 Naomi Amaya Ruby ra3 Corrections: (The following items were deleted from the chart) 09/12 12:22 12:19 BP 83 / 53; Pulse 78bpm; Resp 20bpm; Pulse Ox 94% 02 12lpm Nebulizer Mask; bp bp
--- NOTE | 2024-09-12 14:16 | EDPHYS ---
Physician Documentation [facility] Name: Adi Meredith Age: 54 yrs Sex: Male : 1970 Arrival Date: 09/12/2024 Time: 11:23 Bed 18 Private MD: ED Physician Dago Archibald HPI: 09/12 11:53 This 54 yrs old Male presents to ER via Unassigned with complaints of Breathing sb4 Difficulty. 11:53 patient reports feeling sick for the past 5 days. thought it was a mild sinus infection sb4 but has turned into sob. went to urgent care this morning, was told his blood pressure and oxygen were low and that he needed to go to the ED. . Historical: - Allergies: 12:19 No Known Allergies; bp - Home Meds: 12:19 amlodipine oral [Active]; Metoprolol Tartrate Oral [Active]; lisinopril Oral [Active]; bp - PMHx: 12:19 Hypertensive disorder; bp - Immunization history:: Adult Immunizations up to date. - Infectious Disease History:: Denies. - Social history:: Smoking status: Patient denies any tobacco usage or history of. ROS: 11:57 MS/Extremity: Negative for injury and deformity, sb4 11:57 Constitutional: Positive for fatigue, malaise, 11:57 Respiratory: Positive for cough, dyspnea on exertion, pleurisy, shortness of breath, wheezing, 11:57 Abdomen/GI: Positive for nausea and vomiting, 11:57 All other systems are negative, Exam: 11:57 Head/Face: Normocephalic, atraumatic. Eyes: Extra-ocular motions intact. Periorbital sb4 areas with no swelling, redness, or edema. Cardiovascular: Regular rate and rhythm with a normal S1 and S2. Abdomen/GI: Soft, non-tender, no distension. Skin: Warm, dry with normal turgor. Normal color with no rashes, no lesions, and no evidence of cellulitis. 11:57 Constitutional: The patient appears alert, awake, obviously ill, pale, uncomfortable, 11:57 ENT: Mouth: Oral mucosa: dry, 11:57 Respiratory: mild respiratory distress is noted, Respirations: labored breathing, Breath sounds: bronchial sounds, that are moderate, are heard diffusely, Vital Signs: 12:17 Pulse 81; Resp 24; Temp 97.9; Pulse Ox 90% on 2 lpm NC; bp 12:19 BP 83 / 53; Pulse 78; Resp 20; Pulse Ox 94% on 12 lpm Nebulizer Mask; Weight 130.18 kg; bp 13:06 BP 79 / 46; Pulse 78; Resp 20; Pulse Ox 91% on 4 lpm NC; bp 13:55 BP 89 / 52; Pulse 85; Pulse Ox 93% on 4 lpm NC; sb4 14:13 BP 99 / 56; sb4 14:24 BP 96 / 61; sb4 14:37 BP 96 / 61; Pulse 85; Resp 20; Pulse Ox 90% on 4 lpm NC; bp 16:00 BP 96 / 53; Pulse 84; Resp 21; Pulse Ox 92% on 4 lpm NC; bp MDM: 11:35 Medical Screening Exam initiated sb4 13:03 Antibiotic administration: Rocephin and Zithromax given. The patient's pulmonary sb4 embolism risk score was calculated as follows: No Risks (0 Pts) Total Score: 0-2 points. This patient was found to be at low risk for a pulmonary embolism by using the Well's assessment criteria. Data reviewed: vital signs, nurses notes, lab test result(s), EKG, radiologic studies, I have discussed the patient's presentation/case with the attending Emergency Department Physician; and as a result, I will admit patient. Consideration of Admission/Observation Patient was admitted/placed on observation. Care significantly affected by the following chronic conditions: Hypertension, Obesity. Post IV fluid administration reassessment for Sepsis: Client prescribed 30 mL/kg IVF. Counseling: I had a detailed discussion with the patient and/or guardian regarding the historical points, exam findings, and any diagnostic results supporting the discharge/admit diagnosis, lab results, radiology results, the need for further work-up and treatment in the hospital. 13:51 Post IV fluid administration reassessment for Sepsis: Sepsis focused reassessment sb4 complete. 14:32 Antibiotic administration: sb4 14:38 ED course: hospitalist declines admission due to lack of pulmonology and ICU beds. sb4 14:44 ED course: all [facility] ICUs are full, will attempt transfer to [facility]. sb4 15:24 Management of patient was discussed with the following: Hospitalist: cardroom worker, Dr lionel Wright, at [facility], accepts patient . 16:24 Differential diagnosis: asthma, Bronchitis Chronic Obstructive Pulmonary Disease sb4 pneumonia, pulmonary edema, Sepsis. 09/12 11:46 Order name: Blood Culture Adult (2) sb4 09/12 11:46 Order name: CBC with Diff; Complete Time: 12:26 sb4 09/12 11:46 Order name: CMP; Complete Time: 12:26 sb4 09/12 11:46 Order name: Lactate w/ 2H reflex if indic.; Complete Time: 12:25 sb4 09/12 11:46 Order name: Protime (+inr); Complete Time: 12:08 sb4 09/12 11:46 Order name: Ptt, Activated; Complete Time: 12:08 sb4 09/12 11:46 Order name: Troponin High Sensitivity; Complete Time: 12:26 sb4 09/12 11:46 Order name: BNP; Complete Time: 12:26 sb4 09/12 11:46 Order name: SARS RAPID; Complete Time: 12:58 sb4 09/12 11:46 Order name: Flu; Complete Time: 12:58 sb4 09/12 11:46 Order name: RSV; Complete Time: 12:58 sb4 09/12 12:25 Order name: Ghost Lactate-NO COLLECT Timer; Complete Time: 14:24 EDMS 09/12 12:26 Order name: Manual Differential; Complete Time: 12:26 EDMS 09/12 15:02 Order name: ABG; Complete Time: 16:20 sb4 09/12 15:27 Order name: Lactate Sepsis 2 HR Follow-up; Complete Time: 15:28 EDMS 09/12 11:46 Order name: Chest Single View XRAY; Complete Time: 12:25 sb4 09/12 12:27 Order name: Chest Wo Con CT; Complete Time: 13:37 sb4 09/12 11:46 Order name: Accucheck; Complete Time: 11:56 sb4 09/12 11:46 Order name: Cardiac monitoring; Complete Time: 11:56 sb4 09/12 11:46 Order name: EKG - Nurse/Tech; Complete Time: 11:56 sb4 09/12 11:46 Order name: IV Saline Lock - Large Bore; Complete Time: 11:56 sb4 09/12 11:46 Order name: Labs collected and sent; Complete Time: 11:56 sb4 09/12 11:46 Order name: O2 Per Protocol; Complete Time: 11:56 sb4 09/12 11:46 Order name: O2 Sat Monitoring; Complete Time: 11:56 sb4 09/12 11:46 Order name: Vital Signs; Complete Time: 12:54 sb4 09/12 14:47 Order name: IV Saline Lock - Large Bore; Complete Time: 15:29 momo EC:47 Rate is 80 beats/min. Rhythm is regular, Normal Sinus Rhythm. MA interval is normal at sb4 192 msec. QRS interval is normal at 106 msec. QT interval is normal at 398 msec. No Q waves. T waves are Normal. No ST changes noted. Clinical impression: Normal ECG and No evidence of ischemia. Interpreted by me. Reviewed by me. Administered Medications: 12:00 Drug: MethylPrednisoLONE IVP 125 mg IVP once Route: IVP; Site: right antecubital; bp 16:13 Follow up: Response: No adverse reaction bp 12:00 Drug: DuoNeb Nebulize (3:1) (2.5 mg - 0.5 mg) 3 ml Nebulizer once Route: Nebulizer; bp 16:14 Follow up: Response: No adverse reaction bp 12:30 Drug: NS 0.9% IV (30 ml/kg) 30 ml/kg IV at bolus once; Sepsis Protocol; to be given as bp a bolus over 90 minutes Route: IV; Rate: bolus; Site: right antecubital; 16:13 Follow up: IV Status: Completed infusion bp 12:45 Drug: Aspirin PO Chewable Tablet 324 mg PO once; 81 mg tablets x 4 Route: PO; bp 16:13 Follow up: Response: No adverse reaction bp 12:55 Drug: AZITHromycin IVPB 500 mg IVPB once over 1 hrs; (mix in 250 mL NS) Route: IVPB; bp Infused Over: 1 hrs; Site: right antecubital; 16:13 Follow up: IV Status: Completed infusion bp 12:55 Drug: Rocephin IV 1 grams IV at calculated rate once; Given slow IV push per pharmacy bp instructions Route: IV; Rate: calculated rate; Site: right antecubital; 16:13 Follow up: IV Status: Completed infusion bp 13:15 Drug: Potassium PO Effervescent Tablet 50 mEq PO once; dissolve in 4 ounces of water or bp juice Route: PO; 16:12 Follow up: Response: No adverse reaction bp 14:00 Drug: Albumin IVPB 25 grams 100 ml IVPB once; (Note: Albumin 25% concentration) Volume: bp 100 ml; Route: IVPB; Site: right antecubital; 16:12 Follow up: IV Status: Completed infusion bp 15:00 Drug: levofloxacin IVPB 750 mg 150 ml IVPB once over 90 mins Volume: 150 ml; Route: bp IVPB; Infused Over: 90 mins; Site: right antecubital; 16:12 Follow up: IV Status: Completed infusion bp 15:45 Drug: HYDROcodone-acetaminophen PO 5 mg-325 mg 1 tabs PO once Route: PO; bp 16:15 Drug: vancoMYCIN IVPB 1.5 grams IVPB at calculated rate once Route: IVPB; Rate: bp calculated rate; Site: right antecubital; 17:02 Drug: NS 0.9% IV 1000 ml IV at 100 ml once Route: IV; Rate: 100 ml; Site: right bp antecubital; Disposition: 14:20 Critical Care:. sb4 Disposition Summary: 09/12/24 14:38 Transfer Ordered Notes: Reason: Higher level of care sb4 Condition: Serious(09/12/24 14:38) sb4 Problem: new(09/12/24 14:38) sb4 Symptoms: are unchanged(09/12/24 14:38) sb4 Transfer Location: [facility](09/12/24 14:44) sb4 Accepting Physician: Dr. Wright(09/12/24 17:24) iw Diagnosis - Multifocal pneumonia sb4 - Severe sepsis with septic shock(09/12/24 14:38) sb4 - Hypoxemia(09/12/24 14:38) sb4 Forms: - Medication Reconciliation Form sb4 - SBAR form sb4 Critical care time excluding procedures: 14:20 Critical care time: Bedside Care: 15 minutes, Consultation: 15 minutes, Family sb4 Intervention: 5 minutes. Total time: 35 minutes Addendum: 09/16/2024 12:45 Co-signature as Attending Physician, Dago Archibald MD I agree with the assessment and c ocasio plan of care. Signatures: Dispatcher [employer] EDDago Carrillo MD MD cha Williams, Irene, RN RN iw Peltier, Brian, RN Denae Silverio PA-C PANora sb4 Corrections: (The following items were deleted from the chart) 09/12 11:47 11:47 BLOOD CULTURE*+BA.LAB.BRZ ordered. EDMS EDMS 11:47 11:47 CBC+H.LAB.BRZ ordered. EDMS EDMS 11:47 11:47 COMPREHENSIVE METABOLIC PANEL+C.LAB.BRZ ordered. EDMS EDMS 11:47 11:47 LACTATE+C.LAB.BRZ ordered. EDMS EDMS 11:47 11:47 PROTIME (+INR)+COAG.LAB.BRZ ordered. EDMS EDMS 11:47 11:47 PTT, ACTIVATED+COAG.LAB.BRZ ordered. EDMS EDMS 11:47 11:47 Troponin High Sensitivity+C.LAB.BRZ ordered. EDMS EDMS 11:47 11:47 PROBNP+C.LAB.BRZ ordered. EDMS EDMS 11:47 11:47 SARS-COV-2 Antigen Rapid+I.LAB.BRZ ordered. EDMS EDMS 11:47 11:47 Influenza Screen (A \T\ B)+BA.LAB.BRZ ordered. EDMS EDMS 11:47 11:47 Respiratory Syncytial Virus Ag+BA.LAB.BRZ ordered. EDMS EDMS 11:47 11:47 Chest Single View+RAD.RAD.BRZ ordered. EDMS EDMS 11:55 11:55 An electrocardiogram was deferred on this patient sb4 sb4 12:27 12:27 Thorax Wo Con+CT.RAD.BRZ ordered. EDMN EDMS 14:37 14:16 Inpatient Admission sb4 sb4 14:37 14:16 Darius Greene sb4 sb4 14:37 14:16 Telemetry/MedSurg (Inpatient) sb4 sb4 14:37 14:16 Serious sb4 sb4 14:37 14:16 new sb4 sb4 14:37 14:16 have improved sb4 sb4 14:37 14:16 Standard sb4 sb4 14:37 14:16 sb4 sb4 14:37 14:16 Multifocal pneumonia sb4 sb4 14:37 14:16 Severe sepsis with septic shock sb4 sb4 14:37 14:16 Hypoxemia sb4 sb4 14:37 14:16 Hypokalemia sb4 sb4 14:44 14:38 cardroom worker sb4 sb4 14:44 14:38 [facility] sb4 sb4 15:02 15:02 Arterial Blood Gas+RC.LAB.BRZ ordered. EDMS EDMS 15:10 14:44 cardroom worker sb4 sb4 17:24 15:10 Dr. Wright sb4 iw
[2024-09-12] MEDS ORDERED: Levofloxacin 750mg IV 750 MG/150 ML BAG IV ONE (15:20)
[2024-09-12] MEDS ORDERED: VANCOMYCIN 1.5 GM in NA CHLORIDE 0.9% 500 ML IVPB ONE (16:00)
[2024-09-12 16:16] LABS: Arterial Blood Carboxyhemoglob 1.3 % (0-1.5); Blood Gas Oxyhemoglobin 85.3 % (94-97); Blood Gas THB 12.1 g/dl (12-18); Blood O2 Saturation 87.8 % (92-98.5)
[2024-09-12] MEDS ORDERED: HYDROCODONE/APAP 5/325 MG TAB ONE (16:16)
[2024-09-12 17:42] VITALS: TEMP 97.9
[2024-09-12 17:55] VITALS: BP 96/53; O2SAT 92
--- NOTE | 2024-09-17 13:50 | EKG ---
Test Date: 2024-09-12 Test Time: 11:44:04 Space Physicist: KYLE MEASUREMENT RESULTS: Intervals: Rate: 80 LA: 192 QRSD: 106 QT: 398 QTc: 459 [place]: P: 47 LA: 192 QRS: 51 T: 80 INTERPRETIVE STATEMENTS: Normal sinus rhythm Normal ECG No previous ECG available for comparison Electronically Signed On 09-17-24 13:39:21 DIRECTOR DRUG SAF[employer] by Noe Leal
== END 2024-09-12 17:24 | disposition short-term general hospital (02) ==
LOC: ER 11:23
DX: J18.8 Other pneumonia, unspecified organism (principal); R09.02 Hypoxemia; R65.21 Severe sepsis with septic shock; I10 Essential (primary) hypertension; Z11.52 Encounter for screening for COVID-19
CPT/HCPCS: 96365; 96367; 93005; 87040 ×2; 85025; 36415; 87205 ×3; 85610; 83605 ×2; 85730; 84484; 80053; 83880; 87807; 87804 ×2; 71250; 71045; 82805; 96375; 99285; 87811; 36600; J7613; J7644; J2919; P9047; J7040; J7030; J0696